=== PATIENT | female | born 1985 | race Caucasian/White ===

== ENCOUNTER → 2022-06-28 06:41 | Outpatient (CLI) | payer OTHER, SELFPAY ==
--- NOTE | 2022-06-28 | DI.ECHO.S_ITS ---
[facility] +---------+ : : [address] : [address] : : : : [id number] : : : : Phone: [phone]---------+ Echocardiogram Report + + :Name: CYNTHIA THOMAS Study Date: 06/28/2022 Height: 70 in : :[facility] ReadingLocation: Weight: 170 lb : : Gender: Female BSA: 1.9 m2 : :: 1985 Age: 36 yrs BP: 128/81 mmHg: :Reason For Study: PALPITATIONS HR: 65 : :Ordering Physician: MAXWELL, : :FELISA Performed By: JEAN BETTENCOURT : :Referring: FELISA CHIN : + + Interpretation Summary 1) Normal left ventricular thickness, size, and systolic function (EF 55-60%). 2) Normal right ventricular size and function. 3) No significant valvular abnormalities. 4) No prior Echo available for comparison. Procedure: A two-dimensional transthoracic echocardiogram with color flow and Doppler was performed. The study quality was technically difficult. There is no prior echocardiogram noted for this patient. The patient was in normal sinus rhythm during the exam. Left Ventricle: The left ventricle is normal in size and wall thickness. The ejection fraction is estimated to be 55-60%. There are no obvious focal wall motion abnormalities noted but poor endocardial definition reduces the sensitivity for the detection of such. Right Ventricle: The right ventricle is normal in size and function. Atria: Both atria are normal in size. There is no Doppler evidence for an interatrial shunt. Mitral Valve: The mitral valve is normal in structure and function. There is trace mitral regurgitation. Aortic Valve: The aortic valve is trileaflet. The aortic valve opens well. There is no aortic valve stenosis. No aortic regurgitation is present. Tricuspid Valve: The tricuspid valve is normal in structure and function. There is mild tricuspid regurgitation. The right ventricular systolic pressure is estimated to be at least 19 mmHg based on an estimated right atrial pressure of 3 mm Hg. Pulmonic Valve: The pulmonic valve is normal in structure and function. There is no pulmonic valvular regurgitation. Great Vessels: The aortic root is normal size. The ascending aorta could not be visualized. The IVC is of normal diameter and collapses greater than 50% with a sniff. This suggests a low right atrial pressure of 3 mm Hg. Pericardium/ Pleura There is no pericardial effusion. There is no pleural effusion. MMode/2D Measurements & Calculations LVIDd: 4.5 cm LVOT diam: 1.9 cm LVIDs: 2.9 cm Ao root diam: 2.8 cm FS: 35.6 % IVSd: 0.60 cm LVPWd: 0.80 cm LV guevara. diameter/BSA (cm/m^2): 2.3 LV sys. diameter/BSA (cm/m^2): 1.5 LA A2 area: 15.0 cm2 RA long axis: 3.7 cm LA A4 area: 10.0 cm2 LA length (vol): 4.7 cm LA vol: 27.3 ml LA vol index: 14.0 ml/m2 LVLs ap4: 6.4 cm LVLd ap2: 7.8 cm LVLs ap2: 6.2 cm TAPSE_phl: 2.0 cm Doppler Measurements & Calculations Ao V2 max: 140.0 cm/sec LVOT Max Armaan: 129.0 cm/sec Ao V2 mean: 96.9 cm/sec LV V1 max P.7 mmHg Ao max P.0 mmHg LV V1 VTI: 28.8 cm Ao mean P.0 mmHg SALLY(I,D): 2.8 cm2 Ao V2 VTI: 29.0 cm SALLY(V,D): 2.6 cm2 sev ratio: 0.99 SALLY indexed to BSA (cm^2/m^2): 1.4 MV E max armaan: 93.4 cm/sec TR max armaan: 199.0 cm/sec MV A max armaan: 87.4 cm/sec TR max P.8 mmHg MV E/A: 1.1 PA V2 max: 88.8 cm/sec Med Peak E' Armaan: 12.9 cm/sec PA V2 mean: 69.5 cm/sec E/E' med: 7.2 PA mean P.0 mmHg Lat Peak E' Armaan: 14.7 cm/sec PA pr(Accel): 33.1 mmHg E/E' lat: 6.4 E/e' average: 6.8 MV dec time: 0.23 sec SV(LVOT): 81.7 ml AV VR_phl: 0.92 SALLY(VTI)/BSA_phl: 1.4 MV P1/2t-pr_phl: 68.0 msec Reading Physician:02:27 PM
== END ==
PROVIDERS: PCP Registered Nurse; Referring Provider Internal Medicine Cardiovascular Disease; Visit Provider Internal Medicine Cardiovascular Disease
DX: R42 Dizziness and giddiness (principal); R00.2 Palpitations; I07.1 Rheumatic tricuspid insufficiency
CPT/HCPCS: 93306

== ENCOUNTER → 2022-08-12 16:21 | Outpatient (CLI) | payer OTHER, SELFPAY ==
--- NOTE | 2022-08-12 16:22 | DI.MRI.S_ITS ---
PROCEDURE: MR HEAD/BRAIN WO CON INDICATIONS: Dizziness and giddiness TECHNIQUE: Noncontrast axial T1 spin echo, axial T2 fast spin echo, sagittal and axial FLAIR, coronal T2 fast spin echo, axial gradient echo, axial diffusion and ADC through the brain. COMPARISON: None. FINDINGS: Image quality: Excellent. CSF Spaces: Basal cisterns are patent. No extra-axial fluid collections. Ventricles are normal in size and shape. Brain: No intracranial masses or hemorrhage. Gerard/white matter interface is normal. Brainstem appears normal. Diffusion-weighted images demonstrate no acute ischemic insult. No chronic ischemic insults. Normal intravascular flow voids are present. Skull and face: Calvarium has normal marrow signal. Orbits appear normal. Sinuses: Sinuses demonstrate trace mucosal thickening. No fluid levels. Mastoid air cells are clear. IMPRESSION: 1. No acute intracranial process. 2. No fluid levels to suggest acute sinusitis. Dictated by: Rosmery Connors M.D. on 08/13/2022 at 10:42 Approved by: Rosmery Connors M.D. on 08/13/2022 at 10:45
== END ==
PROVIDERS: PCP Registered Nurse; Referring Provider Psychiatry & Neurology Neurology; Visit Provider Psychiatry & Neurology Neurology
DX: H93.11 Tinnitus, right ear (principal); H53.8 Other visual disturbances; R42 Dizziness and giddiness
CPT/HCPCS: 70551